=== PATIENT | female | born 1960 | race Caucasian/White ===

== ENCOUNTER 2016-08-24 16:30 | Emergency (ER) | payer OTHER ==
[~2016-08-24 16:30] MED LIST: ABILIFY10 PO; ABILIFY15 PO; ABILIFY30 MG PO; ACCUNE1 INH; ACETSUP650 RC; ADVAIR250; ADVAIR250 INH; ALBUTEROL INH; ALBUTEROL5; ASAB PO; ATIVAN INH; BETAPACE80 PO; CELEXA10 PO; CELEXA20 PO; CENTRUM TAB1 TAB PO; CRESTOR20 MG PO; DSS PO; DUONEB INH; FISH-EPA1000 MG PO; FLOVENT DISKUS PO; FLOVENT110 INH; FLOVENT220 INH; IBU800 PO; KAPIDEX60 MG PO; KEPPRA750 MG PO; LIPITOR40 PO; LORTAB 5 PO; MUCINEX600 MG PO; MULTIVITAMI1 PO; NICODERM C14 MG/24 H TOP; P10 PO; P20 PO; PRILO PO; PROAIR HFA INH; PROTONIX PO; PROVHFA INH; SINGULAIR1 PO; SORINE80 MG PO; SPIRIVA INH; STERAPRED DS10 MG; T PO; XARELTO20 MG PO
== END 2016-08-24 18:07 | disposition home or self-care (01) ==
LOC: ER 16:30
DX: S46.911A Strain of unspecified muscle, fascia and tendon at shoulder and upper arm level, right arm, initial encounter (principal); I48.91 Unspecified atrial fibrillation; F17.200 Nicotine dependence, unspecified, uncomplicated; Z88.2 Allergy status to sulfonamides; Z88.5 Allergy status to narcotic agent; Z88.0 Allergy status to penicillin; Z88.8 Allergy status to other drugs, medicaments and biological substances; Z79.52 Long term (current) use of systemic steroids; Z79.899 Other long term (current) drug therapy; X50.0XXA Overexertion from strenuous movement or load, initial encounter
CPT/HCPCS: 73030-RT; 99283; A9270-GY